=== PATIENT | female | born 1960 | race Asian ===

== ENCOUNTER 2017-04-29 20:21 | Emergency (ER) | payer BC ==
[2017-04-29 23:04] VITALS: BP 150/109
== END 2017-04-29 23:04 | disposition home or self-care (01) ==
LOC: ED 20:21
DX: S00.33XA Contusion of nose, initial encounter (principal); I10 Essential (primary) hypertension; Z88.0 Allergy status to penicillin; Z88.1 Allergy status to other antibiotic agents; Z88.2 Allergy status to sulfonamides; W22.8XXA Striking against or struck by other objects, initial encounter; Y93.89 Activity, other specified; Y92.89 Other specified places as the place of occurrence of the external cause; Y99.8 Other external cause status